=== PATIENT | male | born 1950 | race American Indian/Alaskan Native ===

== ENCOUNTER 2021-05-30 10:05 | Day surgery (SDC) | payer MEDICARE ==
[2021-05-27 13:19] LABS: BUN/Creatinine Ratio 13; Blood Urea Nitrogen 12 mg/dL (9-20); Calcium 9.4 mg/dL (8.4-10.2); Hemolysis Index 5
[2021-05-27 13:35] LABS: Hematocrit 45.4 % (35.5-45.6); Hemoglobin 15.6 gm/dl (11.8-15.2); Mean Corpuscular HGB Conc 34 % (32-34); Mean Corpuscular Volume 94 fl (84-94); Platelet Count 181 K/mm3 (140-440); Red Blood Count 4.82 M/mm3 (3.65-5.03); Red Cell Distribution Width 14.2 % (13.2-15.2)
[2021-05-30] MEDS ORDERED: LACTATED RINGERS 1,000 ML ONE (10:37)
[2021-05-30] MEDS ORDERED: HYDROmorphone 1 MG/1 ML INJ IV PRN ×2 (11:28→11:30)
--- NOTE | 2021-05-30 11:28 | Anesthesia Day of Surgery ---
Anesthesia Day of Surgery - Day of Surgery Patient Examined: Yes Patient H&P Reviewed: Yes Patient is NPO: Yes
[2021-05-30] MEDS ORDERED: LACTATED RINGERS 1,000 ML IV SCH (11:30)
[2021-05-30] MEDS ORDERED: ONDANSETRON 4 MG/2 ML INJ IV PRN (11:30)
--- NOTE | 2021-05-30 11:30 | Anesthesia Consultation ---
Anesthesia Consult and Med Hx Date of service: 05/30/21 - Airway Anesthetic Teeth Evaluation: Good ROM Head & Neck: Adequate Mental/Hyoid Distance: Adequate Mallampati Class: Class II Intubation Access Assessment: Good - Pre-Operative Health Status ASA Pre-Surgery Classification: ASA2 Proposed Anesthetic Plan: General - Pulmonary Hx Smoking: Yes (STOPPED 1990) Hx Sleep Apnea: No (BENITA PRE SCREEN HIGH RISK) - Cardiovascular System Hx Hypertension: Yes Hx Heart Attack/AMI: No - Central Nervous System Hx Seizures: No Hx Back Pain: No Hx Psychiatric Problems: No - Gastrointestinal Hx Gastroesophageal Reflux Disease: Yes (Occasional dietary) - Endocrine Hx Renal Disease: Yes (Stones) Hx End Stage Renal Disease: No Hx Non-Insulin Dependent Diabetes: Yes - Hematic Hx Anemia: No Hx Sickle Cell Disease: No - Other Systems Hx Alcohol Use: Yes (OCC. WINE) Hx Substance Use: No Hx Cancer: No
[2021-05-30] MEDS ORDERED: propofoL 200 MG/20 ML VIAL IV ONE (11:47)
[2021-05-30] MEDS ORDERED: HYDROmorphone 1 MG/1 ML INJ ONE (11:47)
[2021-05-30] MEDS ORDERED: LIDOCAINE MPF (2%) 20 MG/1 ML VIAL 5 ML ONE (11:48)
[2021-05-30] MEDS ORDERED: MIDAZOLAM 2 MG/2 ML INJ IV NR (12:00)
[2021-05-30] MEDS ORDERED: ONDANSETRON 4 MG/2 ML INJ ONE (12:35)
--- NOTE | 2021-05-30 12:37 | Short Stay Summary ---
Short Stay Documentation Date of service: 05/30/21 - Allergies and Medications Current Medications: Allergies No Known Allergies Allergy (Unverified 05/24/21 11:30) Home Medications Medication Instructions Recorded Confirmed Last Taken Type Aspirin 81 mg PO PRN 05/24/21 05/24/21 Unknown History Atorvastatin 20 mg PO DAILY 05/24/21 05/30/21 05/29/21 History Brimonidine Tartrate 0.2% 1 drop OU BID 05/24/21 05/24/21 Unknown History Latanoprost 0.005% 1 drop OU HS 05/24/21 05/24/21 Unknown History Losartan 25 mg PO DAILY 05/24/21 05/30/21 05/30/21 History Testosterone Cypionate (Nf) 0.3 ml IM 1XW 05/24/21 05/24/21 Unknown History [Depo-Testosterone (Nf)] metFORMIN 1,000 mg PO BID 05/24/21 05/30/21 05/29/21 History Active Medications Hydromorphone HCl (Hydromorphone 1 Mg/1 Ml Inj) 0.25 mg IV Q10MIN PRN PRN Reason: Pain, Moderate (4-6) Stop: 05/30/21 23:00 Hydromorphone HCl (Hydromorphone 1 Mg/1 Ml Inj) 0.5 mg IV Q10MIN PRN PRN Reason: Pain , Severe (7-10) Stop: 05/30/21 23:00 Lactated Ringer's (Lactated Ringers) 1,000 mls @ 125 mls/hr IV DIRECT ZIYAD Midazolam HCl (Midazolam 2 Mg/2 Ml Inj) 2 mg IV PREOP NR Stop: 05/30/21 23:59 Ondansetron HCl (Ondansetron 4 Mg/2 Ml Inj) 4 mg IV ONCE PRN PRN Reason: Nausea And Vomiting - Brief post op/procedure progress note Date of procedure: 05/30/21 Pre-op diagnosis: rt renal stone Post-op diagnosis: same Procedure: eswl Anesthesia: GETA Surgeon: MICHEAL HARPER Estimated blood loss: none Condition: stable - Hospital course Hospital course: norco & post op info on chart - Disposition Condition at discharge: Stable Disposition: 01 HOME / SELF CARE / HOMELESS Short Stay Discharge Plan Follow up with: JOSELO MORSE MD [Primary Care Provider] - 7 Days
--- NOTE | 2021-05-30 13:43 | Operative Report ---
DATE OF SURGERY: 05/30/2021 PREOPERATIVE DIAGNOSIS: Right 5 mm renal stone. POSTOPERATIVE DIAGNOSIS: Right 5 mm renal stone. PROCEDURE: Right extracorporeal shockwave lithotripsy. SURGEON: Edgar Giordano MD ANESTHESIA: General. ESTIMATED BLOOD LOSS: Minimal. FLUIDS: Crystalloid. COMPLICATIONS: No complications. INDICATIONS: This patient is a 70-year-old gentleman, seen in the office for flank pain. CT abdomen and pelvis revealed a 5-mm stone and degenerative changes of his spine. We discussed options. The patient agreed to proceed with surgical intervention. Risks, benefits, and complications were explained. DESCRIPTION OF PROCEDURE: The patient was taken to the operative suite, placed in a supine position. After adequate general anesthesia, stone was localized in 2 planes using fluoroscopy. Extracorporeal shockwave lithotripsy was administered with a maximum kV of 8 and 2500 shocks. Five-minute renal pause after 200 shocks. The patient tolerated the procedure well, was extubated, taken to recovery room. He will go home on [place] and a strainer, and follow up in the office. TID: [id number] RECEIPT: [id number] AUGIE/GIANNA
--- NOTE | 2021-05-30 15:36 | Post Anesthesia Evaluation ---
- Post Anesthesia Evaluation Patient Participated: Yes Airway Patent: Yes Stable Respiratory Function: Yes Nausea/Vomiting: No Temp > 96.8F: Yes Pain Manageable: Yes Adequeate Hydration: Yes Anesthesia Complications: No Block Receding Appropriately: Not Applicable Patient on Ventilator: No
[2021-05-30 20:29] VITALS: BP 106/65
== END 2021-05-30 10:06 | disposition home or self-care (01) ==
LOC: OR 10:05
PROVIDERS: ATTEND Urology
DX: N20.0 Calculus of kidney (principal); Z20.822 Contact with and (suspected) exposure to COVID-19; I10 Essential (primary) hypertension; E11.9 Type 2 diabetes mellitus without complications; K21.9 Gastro-esophageal reflux disease without esophagitis; Z87.891 Personal history of nicotine dependence; Z79.82 Long term (current) use of aspirin; Z79.899 Other long term (current) drug therapy; Z98.890 Other specified postprocedural states
CPT/HCPCS: 36415; 50590; 80048; 82962; 85027; J0690; J1170; J2405; J2704; J7120; U0003